=== PATIENT | male | born 1990 | race African-American/Black ===

== ENCOUNTER 2016-12-29 12:03 | Emergency (ER) | payer SELFPAY ==
[~2016-12-29] VITALS: Ht 188 cm; Wt 95.0 kg
[2016-12-29 12:04] VITALS: BP 132/60; PULSE 62; RESP 20; TEMP 99.4; O2SAT 97
[2016-12-29] MEDS ORDERED: ERYTOIN10 LEFT EYE (12:36)
--- NOTE | 2016-12-29 12:37 | PD ---
HPI Chief Complaint: Eye Problems/Injury Time Seen by Provider: 12:14 Travel History International Travel<30 days: No Contact w/Intl Traveler<30days: No Traveled to known affect area: No History of Present Illness HPI This is a 26 year old male who presents to the emergency department with redness and irritation of his left eye, constant, moderate severity for 2 weeks. In the morning he wakes up with some yellow discharge from the eye. He says the little irritating in the morning but he has minimal discomfort throughout the day. He doesn't wear contacts. He hasn't had any sick contacts. [facility] Past Medical History Medical History: Denies Significant Hx Past Surgical History Surgical History: No Previous Surgery Social History Alcohol Use: No Tobacco Use: No Substance Use: No Allergies-Medications (Allergen,Severity, Reaction): Coded Allergies: Penicillin (Verified Allergy, Severe, 12/29/16) Reported Meds & Prescriptions Reported Meds & Active Scripts Active No Active Prescriptions or Reported Medications Review of Systems Except as stated in HPI: all other systems reviewed are Neg Physical Exam Narrative GENERAL:Well appearing, no acute distress SKIN: Focused skin assessment warm and dry. HEAD: Atraumatic. Normocephalic. EYES: Diffuse conjunctival injection in the left eye with no drainage, normal appearing cornea. Normal fluoroscein exam. Right eye 20/20 Left eye 20/40 ENT: Moist mucous membranes NECK: Trachea midline. CARDIOVASCULAR: Regular rate and rhythm. No murmur appreciated. RESPIRATORY: Clear to auscultation. Breath sounds equal bilaterally. GASTROINTESTINAL: Abdomen soft, non-tender, nondistended. MUSCULOSKELETAL: No obvious deformities. NEUROLOGICAL: Awake and alert. No obvious cranial nerve deficits. Moving all extremities. PSYCHIATRIC: Appropriate mood and affect; insight and judgment normal. Data Data Last Documented VS Vital Signs Date Time Temp Pulse Resp B/P Pulse Ox O2 Delivery O2 Flow Rate FiO2 12/29/16 12:04 99.4 62 20 132/60 97 Room Air MDM Medical Decision Making Medical Screen Exam Complete: Yes Emergency Medical Condition: Yes Differential Diagnosis Conjunctivitis, HSV keratitis, uveitis, corneal abrasion, glaucoma Narrative Course This is a 26-year-old male who presents to the emergency department with 2 weeks of irritation in his left eye. On exam he has diffuse conjunctival injection consistent with conjunctivitis. He has no pain to suggest glaucoma. Fluoroscein exam was negative. I think he can be discharged on antibiotics and follow-up with ophthalmology. Diagnosis Primary Impression: Conjunctivitis Qualified Code: B30.9 - Acute viral conjunctivitis of left eye Additional Instructions: If you develop severe pain in the eye or worsening vision return to the emergency department. Follow-up with an service superintendent as soon as possible. Med/Other Pt SpecificInfo: Prescription(s) given Scripts Erythromycin Opth Oint 5 Mg/Gm Oint1 Applic LEFT EYE QID #1 TUBE Ref 0 Prov:Maria R Elizabeth MD 12/29/16 Disposition: 01 DISCHARGE HOME Condition: Stable Maria R Elizabeth MD Dec 29, 2016 12:36
== END 2016-12-29 13:18 | disposition home or self-care (01) ==
LOC: NEPD 12:03
DX: H10.9 Unspecified conjunctivitis (principal); Z88.0 Allergy status to penicillin
CPT/HCPCS: 99283